=== PATIENT | female | born 1990 | race Caucasian/White ===

== ENCOUNTER 2021-03-30 06:46 | Emergency (ER) | payer OTHER ==
[~2021-03-30] VITALS: Ht 172.7 cm; Wt 72.5 kg
[2021-03-30 07:33] LABS: BILIRUBIN,URINE NEG (NEG); CLARITY,URINE HAZY; COLOR,URINE YELLOW; GLUCOSE,URINE NEG (NEG)
[2021-03-30 07:34] LABS: BACTERIA,URINE 0 /HPF (0-FEW); NITRITE,URINE NEG (NEG); RBC,URINE RARE /HPF (0-2); SQUAMOUS EPITHELIAL CELL,UR MOD /LPF; UROBILINOGEN,URINE 0.2 mg/dL (0.2 mg/dL)
[2021-03-30 08:02] VITALS: BP 130/68
--- NOTE | 2021-03-30 08:06 | PHYS DOC ---
Past History Past Medical History: No Pertinent History Past Surgical History: No Surgical History Alcohol Use: None Adult General Chief Complaint Chief Complaint: VAGINAL BLEEDING [facility] Patient is a 31-year-old G2, P0 at 7 weeks gestation who presents to the emergency room with spotting. Patient states that she woke up this morning to go to the bathroom around 530 and noticed some blood when she wiped. She does not notice any blood in the toilet. She denies any abdominal pain. She did have a miscarriage in October but states that this feels different. She has not had an ultrasound yet with this . Review of Systems Review of Systems Complete ROS is negative unless otherwise documented in [facility] Allergies Allergies Allergies Coded Allergies Type Severity Reaction Last Updated Verified nickel Allergy Unknown 03/30/21 Yes Physical Exam Physical Exam General: Awake, alert, NAD. Well Nourished, well hydrated. Cooperative HEENT: Atraumatic, EOMI, PERRL, airway patent, moist oral mucosa Neck: Supple, trachea midline Respiratory: CTA bilaterally, normal effort, no wheezing/crackles CV: RRR, no murmur, cap refill <2 GI: Soft, nondistended, nontender, no masses MSK: No obvious deformities Skin: Warm, dry, intact Neuro: A&O x3, speech NL, sensory and motor grossly intact, no focal deficits Psych: Normal affect, normal mood, not suicidal or homicidal Current Patient Data Vital Signs Vital Signs Date Time Temp Pulse Resp B/P (MAP) Pulse Ox O2 Delivery O2 Flow Rate FiO2 03/30/21 07:10 73 18 133/71 (91) 99 Lab Results Laboratory Tests Test 03/30/21 06:55 03/30/21 07:14 Urine Collection Type Unknown Urine Color Yellow Urine Clarity Hazy Urine pH 6.0 Urine Specific Douglas 1.020 Urine Protein Neg (NEG-TRACE) Urine Glucose (UA) Neg mg/dL (NEG) Urine Ketones (Stick) Neg mg/dL (NEG) Urine Blood Small (NEG) Urine Nitrite Neg (NEG) Urine Bilirubin Neg (NEG) Urine Urobilinogen Dipstick 0.2 mg/dL (0.2 mg/dL) Urine Leukocyte Esterase Small (NEG) Urine RBC Rare /HPF (0-2) Urine WBC 1-4 /HPF (0-4) Urine Squamous Epithelial Cells Mod /LPF Urine Bacteria 0 /HPF (0-FEW) POC Urine HCG, Qualitative hcg positive (Negative) EKG EKG [] Radiology/Procedures Radiology/Procedures [] Heart Score C/O Chest Pain: N/A Risk Factors: Risk Factors: DM, Current or recent (<one month) smoker, HTN, HLP, family history of CAD, obesity. Risk Scores: Risk Factors: DM, Current or recent (<one month) smoker, HTN, HLP, family history of CAD, obesity. Course & Med Decision Making Course & Med Decision Making Pertinent Labs and Imaging studies reviewed. (See chart for details) Patient is a 31 year-old G 2 P 0 who presents to the Emergency Room with vaginal bleeding. Patient has not seen passage of tissue. She has not had a formal ultrasound and does not have a confirmed IUP. UA, Rh type, OB ultrasound, test were ordered. At this time, ultrasound shows IUP. Patient does not need rhogam. I have discussed with the patient that they are likely have a threatened . We have discussed early on in we are unable to prevent miscarriages. We will discussed pelvic rest until she follows up with OBGYN. She will return to the Emergency Room if she has a large amount of bleeding, syncope, SOB. Patient's test results and vitals while in the ED were fully reviewed and discussed with the patient. Patient is stable and at this time does not need admission to the hospital. We have discussed strict return precautions and the importance of following up with their Primary Care Physician. Patient stated understanding and was given an opportunity to ask any questions. Dragon Disclaimer Dragon Disclaimer This electronic medical record was generated, in whole or in part, using a voice recognition dictation system. Departure Departure: Impression: Primary Impression: Threatened in early Disposition: HOME / SELF CARE / HOMELESS Condition: STABLE Referrals: PCP,UNKNOWN (PCP) Patient Instructions: Vaginal Bleeding During , First Trimester Scripts Ondansetron (ONDANSETRON ODT) 4 Mg Tab.rapdis 1 TAB PO PRN Q6-8HRS for nausea, #16 TAB Prov: DANIA CUEVAS MD 03/30/21 Doxylamine Succinate/Vit B6 (Bonjesta ER 20-20 mg Tablet) 1 Each Tab.ir.dr 1 TAB PO BID for morning sickness for 30 Days, #60 TAB 3 Refills Prov: DANIA CUEVAS MD 03/30/21 DANIA CUEVAS MD Mar 30, 2021 08:06
--- NOTE | 2021-03-30 08:48 | RAD ---
INDICATION: Reason: vaginal bleeding in preg / Spl. Instructions: / History: COMPARISON: None. TECHNIQUE: Grayscale and color ultrasound images of the pelvis. FINDINGS: Uterus: 89 x 71 x 55 mm. Intrauterine gestational sac is seen and unremarkable. Too early in gestation to adequately assess p lacenta. pole seen. CRL: 8 mm. Estimated Gestational Age: 6 weeks and 5 days Heart Beat: 124 Right Ovary: 28 x 22 x 18 mm. Left Ovary: 31 x 30 x 23 mm. Vascular flow identified to bilateral ovaries. IMPRESSION: * Intrauterine is seen with positive heart beat. Estimated gestational age of 6 weeks and 5 days. * Recommend routine anomaly screening at 18-22 weeks. Electronically signed by: Britton Casas MD (03/30/2021 8:46 AM) [id number]
[2021-03-30] MEDS ORDERED: ONDA4TAB12 PO (09:50)
[2021-03-30] MEDS ORDERED: DOXY1TAB6 PO (09:50)
== END 2021-03-30 10:03 | disposition home or self-care (01) ==
LOC: ER 06:46
DX: O20.0 Threatened abortion (principal); Z3A.01 Less than 8 weeks gestation of pregnancy; Z88.8 Allergy status to other drugs, medicaments and biological substances
CPT/HCPCS: 36415; 76801; 81001; 81025; 84702; 86900; 86901; 87086; 99284